=== PATIENT | female | born 1975 | race Caucasian/White ===

== ENCOUNTER 2017-03-28 15:11 | Outpatient (CLI) | payer OTHER ==
--- NOTE | 2017-03-28 15:31 | RAD ---
THREE VIEWS OF THE RIGHT FOOT: DATE: 03/28/17. COMPARISON: None. HISTORY: Pain. FINDINGS: There is no displaced fracture or evidence of dislocation seen. No acute osseous abnormality is note d. There is osteophyte formation involving the medial malleolus, incompletely assessed on this exam. IMPRESSION: No acute fracture or evidence of dislocation seen. POS: [facility]
== END 2017-03-28 15:12 | disposition home or self-care (01) ==
LOC: RAD-FRANK 15:11
PROVIDERS: ATTEND Nurse Practitioner Family
DX: M79.671 Pain in right foot (principal)

== ENCOUNTER 2020-09-23 10:45 | Outpatient (CLI) | payer BC | END 2020-09-23 10:46 | disposition home or self-care (01) | LOC: BICMAMMO 10:45 | PROVIDERS: ATTEND Obstetrics & Gynecology | DX: Z12.31 Encounter for screening mammogram for malignant neoplasm of breast (principal) | CPT/HCPCS: 77063; 77067 ==

== ENCOUNTER 2023-05-08 13:49 | Outpatient (CLI) | payer BC | END 2023-05-08 13:50 | disposition home or self-care (01) | LOC: BICRAD 13:49 | PROVIDERS: ATTEND Nurse Practitioner Family | DX: M54.50 Low back pain, unspecified (principal) | CPT/HCPCS: 72100 ==